=== PATIENT | female | born 1990 | race Caucasian/White ===

== ENCOUNTER 2018-04-16 08:39 | Emergency (ER) | payer OTHER, MEDICAID ==
[~2018-04-16] VITALS: Ht 162.6 cm; Wt 70.3 kg
[~2018-04-16 08:39] MED LIST: FLEXERIL PO; HYDROCODON-ACE1 EAC2; IBUPROFEN 800800 M1; KEFLEX500 MG; NAPROSYN500 MG PO; NOHOMEMEDICATIONS; PREDNISONE50 MG PO; ULTRAM 50MG TAB50 MG PO; ZPAK PO
[2018-04-16 09:10] LABS: ABSOLUTE LYMPHOCYTES 0.6 thou/uL (0.8-5.3); ABSOLUTE MONOCYTES 0.4 thou/uL (0.0-1.2); ABSOLUTE NEUTROPHILS 2.6 thou/uL (1.6-8.1); BASOPHILS 0.5 %; EOSINOPHILS 0.3 %; HEMATOCRIT 41.8 % (37.0-47.0); HEMOGLOBIN 14.2 gm/dL (12.0-15.0); LYMPHOCYTES 16.6 %; MCH 29.9 pg (26.0-34.0); MCHC 33.9 g/dL (28.0-37.0); MONOCYTES 11.6 %; MPV 8.4 fl. (7.2-11.1); NUCLEATED RBCS 0 /100WBC; PLATELET COUNT* 150 thou/uL (150-400); RBC 4.75 mil/uL (4.20-5.00); RDW-CV 13.3 % (10.5-14.5); WBC 3.6 thou/uL (4.0-11.0)
[2018-04-16 09:10] LABS: URINE BILIRUBIN NEGATIVE (Negative); URINE BLOOD 3+ (Negative); URINE CLARITY OTHER; URINE COLOR RED; URINE GLUCOSE-RANDOM NEGATIVE (Negative); URINE KETONES TRACE (Negative); URINE LEUKOCYTES-REFLEX 1+ (Negative); URINE PROTEIN 2+ (Negative); URINE SPECIFIC GRAVITY >= 1.030 (1.005-1.030)
[2018-04-16 09:14] LABS: URINE NITRITE-REFLEX POSITIVE (Negative)
[2018-04-16 09:18] LABS: BACTERIA-REFLEX 1-9 Few /HPF (None Seen); CASTS None Seen /LPF (None Seen); CRYSTALS None Seen /LPF (None Seen); SQUAMOUS 0-3 Few /LPF (0-3); URINE RBC >20 Many /HPF (0-2); URINE WBC-REFLEX 0-5 Rare /HPF (0-5)
[2018-04-16 09:20] LABS: CALCIUM 8.9 mg/dL (8.5-10.1); CREATININE 0.7 mg/dL (0.6-1.3); POTASSIUM 3.8 mmol/L (3.5-5.1)
[2018-04-16 09:22] LABS: INR 1.1; PROTIME 10.9 Seconds (9.20-11.50)
[2018-04-16 09:24] LABS: ALBUMIN 3.8 g/dL (3.4-5.0); TOTAL BILIRUBIN 1.3 mg/dL (<0.1-1.0); TOTAL PROTEIN 7.7 g/dL (6.4-8.2)
[2018-04-16] MEDS ORDERED: PREDNISONE 20 M20 M1 PO ×2 (09:44→15:35)
[2018-04-16 10:16] VITALS: BP 99/68
[2018-04-16] MEDS ORDERED: NORCO 5-325 TA1 EACH PO (10:21)
[2018-04-16] MEDS ORDERED: PROVERA10 MG PO (15:10)
== END 2018-04-16 10:17 | disposition home or self-care (01) ==
LOC: M.ERS 08:39
PROVIDERS: Family Medicine
DX: N93.9 Abnormal uterine and vaginal bleeding, unspecified (principal); R42 Dizziness and giddiness

== ENCOUNTER 2018-12-26 11:59 | Inpatient (IN) | payer OTHER, MEDICAID ==
[~2018-12-26] VITALS: Ht 162.6 cm; Wt 68.0 kg
[~2018-12-26 11:59] MED LIST changes: +NORCO 5-325 TA1 EACH PO; +PREDNISONE 20 M20 M1 PO; +PROVERA10 MG PO
[2018-12-26 12:11] VITALS: BP 110/56
[2018-12-26 12:45] LABS: ABSOLUTE EOSINOPHILS 0.1 thou/uL (0.0-0.7); ABSOLUTE MONOCYTES 0.5 thou/uL (0.0-1.2); ABSOLUTE NEUTROPHILS 4.2 thou/uL (1.6-8.1); BASOPHILS 0.2 %; EOSINOPHILS 1.4 %; HEMATOCRIT 44.2 % (37.0-47.0); HEMOGLOBIN 14.9 gm/dL (12.0-15.0); LYMPHOCYTES 17.7 %; MCH 30.1 pg (26.0-34.0); MCHC 33.7 g/dL (28.0-37.0); MCV 89.3 fL (80.0-100.0); MONOCYTES 8.2 %; MPV 8.8 fl. (7.2-11.1); NUCLEATED RBCS 0 /100WBC; PLATELET COUNT* 170 thou/uL (150-400); POLYS 72.5 %; RBC 4.96 mil/uL (4.20-5.00); RDW-CV 14.1 % (10.5-14.5); WBC 5.8 thou/uL (4.0-11.0)
[2018-12-26 12:53] LABS: CALCIUM 9.5 mg/dL (8.5-10.1); CREATININE 0.8 mg/dL (0.6-1.3); POTASSIUM 3.9 mmol/L (3.5-5.1)
[2018-12-26 12:58] LABS: ALBUMIN 3.9 g/dL (3.4-5.0); TOTAL BILIRUBIN 2.3 mg/dL (<0.1-1.0); TOTAL PROTEIN 7.2 g/dL (6.4-8.2)
[2018-12-26 14:58] LABS: DIRECT BILIRUBIN 0.3 mg/dL (<0.1-0.3); TOTAL BILIRUBIN 2.3 mg/dL (<0.1-1.0)
[2018-12-26 15:15] VITALS: BP 106/56
[2018-12-26 15:24] VITALS: BP 107/59
[2018-12-26 19:45] VITALS: BP 105/59
--- NOTE | 2018-12-27 05:54 | NUR ---
PATIENT SLEPT MOST OF THE NIGHT. PATIENT WAS GIVEN BENADRYL ONCE FOR ITCHING. IV FLUIDS AND ANTIBIOTICS WERE GIVEN ORDERED. WILL CONTINUE TO MONITOR.
[2018-12-27 08:00] VITALS: BP 96/50
--- NOTE | 2018-12-27 12:49 | NUR ---
Nutrition: Pt admitted for wasp sting. Seen for Lt buttock cellulitis. Albumin is 3.9. Regular diet. Wt: 15#. No significant PMHx. No nutrition interventions needed at this time. Low risk.
[2018-12-27 15:55] VITALS: BP 87/44
--- NOTE | 2018-12-27 17:03 | NUR ---
SW met with pt to complete initial assessment, introduce self, and SW role. Pt alert, oriented. Pt lives at home independently. Pt works and hopes pt doesn't miss too much more work. Pt possibly able to tolerate oral abx that pt tried today. If pt needed iv abx at dc, pt preference for OP options.
[2018-12-27 20:00] VITALS: BP 101/60
[2018-12-28 04:41] LABS: CALCIUM 8.5 mg/dL (8.5-10.1); CREATININE 0.7 mg/dL (0.6-1.3); POTASSIUM 3.7 mmol/L (3.5-5.1)
--- NOTE | 2018-12-28 05:52 | NUR ---
PATIENT SLEPT WELL DURING THIS SHIFT. PT UP TO BATHROOM WITH STEADY GAIT. PT WITH WASP BITE ON LT BUTTOCKS. AREA IS RED AND WARM TO TOUCH. PT WITH ANTIBIOTICS INFUSING PER DR ORDER. PT DENIES PAIN. PT REQUESTED BENEDRYL FOR ITCHING AT THE SITE OF WASP BITE. PT DENIES NEEDS AT THIS TIME. FREQUENTLY USED ITEMS AND CALL LIGHT WITHIN REACH. SIDERAILS UPX2. WILL CONTINUE TO MONITOR.
[2018-12-28 07:40] VITALS: BP 106/59
[2018-12-28] MEDS ORDERED: KEFLEX500 M1 PO (08:03)
[2018-12-28] MEDS ORDERED: PROBIOTIC1 EAC1 PO (08:03)
[2018-12-28] MEDS ORDERED: ZOFRAN ODT4 MG PO (08:03)
[2018-12-28 09:44] VITALS: BP 101/60
--- NOTE | 2018-12-28 10:10 | NUR ---
PATIENT DISCHARGED TO HOME. DISCHARGE PAPERS REVIEWED AND SIGNED. PRESCRIPTIONS AND INFORMATION SHEETS GIVEN. IV REMOVED. PATIENT DENIES ANY FURTHER NEEDS. PATIENT TAKEN AMBULATORY TO EXIT. LEFT BY OWN VEHICLE.
== END 2018-12-28 10:10 | disposition home or self-care (01) | DRG 603 ==
LOC: M.ERS 11:59 → M.TBA-ER 12:39 → M.ORTHSURG 15:35
PROVIDERS: Physician Assistant; ADMIT Internal Medicine
DX: L03.317 Cellulitis of buttock (principal); F17.210 Nicotine dependence, cigarettes, uncomplicated; T63.461A Toxic effect of venom of wasps, accidental (unintentional), initial encounter; T36.95XA Adverse effect of unspecified systemic antibiotic, initial encounter; E80.6 Other disorders of bilirubin metabolism; Z79.899 Other long term (current) drug therapy; Y92.89 Other specified places as the place of occurrence of the external cause